=== PATIENT | male | born 1990 | race Caucasian/White ===

== ENCOUNTER → 2020-05-01 13:02 | Outpatient (BNVA) | payer BC, SELFPAY | PROVIDERS: Family Provider Family Medicine; PCP Family Medicine; Referring Provider Family Medicine; Visit Provider Dermatology | DX: L73.9 Follicular disorder, unspecified (principal); L24.9 Irritant contact dermatitis, unspecified cause; L90.6 Striae atrophicae; L91.8 Other hypertrophic disorders of the skin; D22.9 Melanocytic nevi, unspecified | CPT/HCPCS: 17110; 99203; 99204 ==

== ENCOUNTER 2020-08-08 15:26 | Outpatient (CLI) | payer BC, SELFPAY ==
--- NOTE | 2020-08-08 15:54 | XR_ITS ---
WS: [id number] XR chest 2V* [id number] REASON FOR EXAM: CHEST PAIN FINDINGS: The heart and mediastinum are within normal limits. No active pulmonary parenchymal or pleural disease is noted. The bony thorax is intact. XR/XR chest 2V* [id number] IMPRESSION: No acute chest abnormality.
== END 2020-08-08 15:27 | disposition home or self-care (01) ==
PROVIDERS: PCP Family Medicine; Visit Provider Family Medicine
DX: R07.9 Chest pain, unspecified (principal)
CPT/HCPCS: 71046

== ENCOUNTER 2020-11-07 20:00 | Outpatient (CLI) | payer BC, SELFPAY | END 2020-11-07 20:01 | disposition home or self-care (01) | LOC: SLEEP 11-08 08:32 | PROVIDERS: PCP Family Medicine; Visit Provider Family Medicine | DX: G47.33 Obstructive sleep apnea (adult) (pediatric) (principal) | CPT/HCPCS: 95810 ==

== ENCOUNTER → 2022-05-17 08:53 | Outpatient (BNVA) | payer BC, SELFPAY | PROVIDERS: PCP Family Medicine; Visit Provider Family Medicine | DX: Z00.00 Encounter for general adult medical examination without abnormal findings (principal); Z13.1 Encounter for screening for diabetes mellitus; Z51.81 Encounter for therapeutic drug level monitoring; Z13.220 Encounter for screening for lipoid disorders; Z30.09 Encounter for other general counseling and advice on contraception | CPT/HCPCS: 80053; 80061; 83036; 85025 ==

== ENCOUNTER → 2024-06-14 08:43 | Outpatient (BNVA) | payer BC, SELFPAY | PROVIDERS: PCP Family Medicine; Visit Provider Family Medicine | DX: Z51.81 Encounter for therapeutic drug level monitoring (principal); Z00.00 Encounter for general adult medical examination without abnormal findings; Z13.1 Encounter for screening for diabetes mellitus; Z13.220 Encounter for screening for lipoid disorders | CPT/HCPCS: 80053; 80061; 83036; 85025 ==

== ENCOUNTER → 2025-05-30 07:58 | Outpatient (BNVA) | payer BC, SELFPAY | PROVIDERS: PCP Family Medicine; Visit Provider Family Medicine | DX: Z51.81 Encounter for therapeutic drug level monitoring (principal); Z00.00 Encounter for general adult medical examination without abnormal findings; Z13.1 Encounter for screening for diabetes mellitus; Z13.6 Encounter for screening for cardiovascular disorders | CPT/HCPCS: 80053; 80061; 83036; 85025 ==